=== PATIENT | female | born 1930 | race Hispanic/Latino ===

== ENCOUNTER 2018-07-22 10:52 | Observation (INO) | payer MEDICARE ==
[~2018-07-22 10:52] MED LIST: AMLO10TA4 PO; FOLI0.4T2 PO; FURO20TA4 PO; HYDR-4068 PO; RANI150T7 PO; RIVA10TA PO
[2018-07-22 12:04] LABS: BASOPHILS % (AUTO) 0.5 % (0.0-5.0); EOSINOPHILS % (AUTO) 2.2 % (0.0-8.0); LYMPHOCYTES % (AUTO) 19.8 % (21.0-51.0); MEAN CORPUSCULAR HGB CONC 31.6 g/dL (32.0-36.0); MEAN CORPUSCULAR VOLUME 94.8 fL (79-99); MONOCYTES % (AUTO) 8.7 % (3.0-13.0); NEUTROPHILS % (AUTO) 68.8 % (40.0-77.0); PLATELET COUNT (AUTO) 165 K/uL (130-400); RED BLOOD CELL COUNT(AUTO) 4.01 MIL/uL (4.00-5.50); RED CELL DISTRIBUTION WIDTH 14.3 % (11.0-15.5); WHITE BLOOD COUNT (AUTO) 5.7 K/uL (4.8-10.8)
[2018-07-22 12:19] LABS: INR 0.96 (0.85-1.15); PARTIAL THROMBOPLASTIN TIME 27.5 SEC (26.3-35.5); PROTHROMBIN TIME 10.1 SEC (9.6-11.6)
[2018-07-22 12:25] LABS: CREATININE 1.5 mg/dL (0.5-1.5); POTASSIUM 4.1 mmol/L (3.5-5.1)
[2018-07-22 12:29] LABS: ALBUMIN 3.5 g/dL (3.5-5.0); BILIRUBIN,TOTAL 0.6 mg/dL (0.2-1.0); TOTAL PROTEIN, SERUM 7.1 g/dL (6.0-8.3)
[2018-07-22 12:37] LABS: TROPONIN I 0.04 ng/mL (0.00-0.06)
[2018-07-22 12:59] LABS: B-TYPE NATRIURETIC PEPTIDE 558 pg/mL (0-100)
[2018-07-22] MEDS ORDERED: FUROSEMIDE 10 MG/ML 4ML VIAL ONE (13:17)
[2018-07-22] MEDS ORDERED: ONDANSETRON HCL 4 MG/2 ML VIAL IVP SCH (16:00)
[2018-07-22] MEDS ORDERED: PANTOPRAZOLE SODIUM 40 MG TABLET.DR PO SCH (16:04)
[2018-07-22] MEDS ORDERED: ENOXAPARIN SODIUM 30 MG/0.3 ML SQ SCH (16:04)
[2018-07-22] MEDS ORDERED: ACETAMINOPHEN 325 MG TAB PO PRN (16:15)
[2018-07-22] MEDS ORDERED: ENOXAPARIN SODIUM 30 MG/0.3 ML SQ ONE (17:02)
[2018-07-22] MEDS ORDERED: FUROSEMIDE 10 MG/ML 4ML VIAL IVP SCH (21:00)
[2018-07-22 21:24] LABS: TROPONIN I 0.05 ng/mL (0.00-0.06)
[2018-07-22] MEDS ORDERED: ACETAMINOPHEN 325 MG TAB ONE (23:41)
[2018-07-23] MEDS ORDERED: FUROSEMIDE 10 MG/ML 4ML VIAL ONE (01:44)
[2018-07-23 02:18] LABS: TROPONIN I 0.05 ng/mL (0.00-0.06)
[2018-07-23] MEDS ORDERED: ASPIRIN 81MG TAB.CHEW ONE (05:00)
[2018-07-23 05:18] LABS: BASOPHILS % (AUTO) 0.6 % (0.0-5.0); EOSINOPHILS % (AUTO) 2.6 % (0.0-8.0); HEMATOCRIT 39.1 % (36-48); LYMPHOCYTES % (AUTO) 18.2 % (21.0-51.0); MEAN CORPUSCULAR HEMOGLOBIN 29.8 pg (27.0-33.0); MEAN CORPUSCULAR HGB CONC 31.7 g/dL (32.0-36.0); MEAN CORPUSCULAR VOLUME 94.2 fL (79-99); MONOCYTES % (AUTO) 10.2 % (3.0-13.0); NEUTROPHILS % (AUTO) 68.4 % (40.0-77.0); PLATELET COUNT (AUTO) 170 K/uL (130-400); RED BLOOD CELL COUNT(AUTO) 4.15 MIL/uL (4.00-5.50); RED CELL DISTRIBUTION WIDTH 14.1 % (11.0-15.5); WHITE BLOOD COUNT (AUTO) 6.6 K/uL (4.8-10.8)
[2018-07-23 05:30] LABS: CREATININE 1.4 mg/dL (0.5-1.5); POTASSIUM 4.2 mmol/L (3.5-5.1)
[2018-07-23 05:37] LABS: HEMOGLOBIN A1C 5.5 % (4.0-6.0)
[2018-07-23 05:44] LABS: PHOSPHORUS 3.7 mg/dL (2.5-4.9); THYROID STIMULATING HORMONE 1.46 uIU/mL (0.36-3.74)
== END 2018-07-23 09:32 | disposition left against medical advice (07) ==
LOC: EDH 10:52 → EDHIP 15:00
PROVIDERS: ADMIT Internal Medicine Nephrology; ATTEND Internal Medicine Nephrology
DX: I11.0 Hypertensive heart disease with heart failure (principal); E11.9 Type 2 diabetes mellitus without complications; E78.5 Hyperlipidemia, unspecified; I25.10 Atherosclerotic heart disease of native coronary artery without angina pectoris; I48.91 Unspecified atrial fibrillation; I50.9 Heart failure, unspecified; J44.9 Chronic obstructive pulmonary disease, unspecified; N28.9 Disorder of kidney and ureter, unspecified
CPT/HCPCS: 36415 ×2; 71045; 80048; 80053; 82550 ×3; 82948; 83036; 83735; 83874 ×3; 83880; 84100; 84443; 84484 ×3; 85025 ×2; 85610; 85730; 93005; 99284; G0378 ×19; J1650; J1940 ×2